=== PATIENT | female | born 1960 | race Caucasian/White ===

== ENCOUNTER 2023-12-13 12:51 | Inpatient (IN) | payer OTHER ==
[~2023-12-13] VITALS: Ht 167.6 cm; Wt 124.7 kg
[2023-12-13 12:56] VITALS: BP 112/72; RESP 20; TEMP 98.3; O2SAT 97
[2023-12-13 14:15] LABS: BASOPHILS % (AUTO) 0.8 % (0.0-2.0); EOSINOPHILS % (AUTO) 0.1 % (0.0-4.0); HEMATOCRIT 43.8 % (36-48); LYMPHOCYTES # (AUTO) 1.3 K/uL (2.5-16.5); LYMPHOCYTES % (AUTO) 20.8 % (20.5-51.1); MEAN CORPUSCULAR HEMOGLOBIN 30 pg (27-31); MEAN CORPUSCULAR HGB CONC 34 g/dL (33-37); MEAN CORPUSCULAR VOLUME 86.8 fL (80-94); MONOCYTES # (AUTO) 0.3 K/uL (0.8-1.0); MONOCYTES % (AUTO) 5.2 % (1.7-9.3); NEUTROPHILS # (AUTO) 4.5 K/uL (1.8-7.7); NEUTROPHILS % (AUTO) 73.1 % (42.2-75.2); PLATELET COUNT (AUTO) 194 K/uL (140-450); RED BLOOD CELL COUNT(AUTO) 5.04 MIL/uL (4.20-5.40); RED CELL DISTRIBUTION WIDTH 14.8 % (11.6-13.7); WHITE BLOOD COUNT (AUTO) 6.1 K/uL (4.8-10.8)
[2023-12-13 14:32] LABS: ANION GAP 17.9 (8-16); CALCIUM 8.5 mg/dL (8.5-10.1); CREATININE 0.9 mg/dL (0.6-1.3); POTASSIUM 4.9 mmol/L (3.5-5.1)
[2023-12-13] MEDS: NACL 0.9% 1,000 ML IV ONE (14:43)
[2023-12-13] MEDS: ONDANSETRON 4 MG/2 ML VIAL IVP ONE (14:44)
[2023-12-13 14:47] LABS: ALBUMIN 3.6 g/dL (3.4-5.0); BILIRUBIN,DIRECT 0.2 mg/dL (0.0-0.3); TOTAL BILIRUBIN 0.8 mg/dL (0.0-1.0); TOTAL PROTEIN, SERUM 7.8 g/dL (6.4-8.2)
[2023-12-13] MEDS ORDERED: FAMOTIDINE 20 MG/2 ML VIAL ONE (14:49)
[2023-12-13] MEDS: FAMOTIDINE 20 MG/2 ML VIAL IVP ONE (14:50)
[2023-12-13] MEDS: ALUMINUM HYD/MAG/SIMETHICONE 30 ML UDC PO ONE (14:55)
[2023-12-13] MEDS ORDERED: DIAZEPAM PFS 10 MG/2 ML SYR ONE (16:39)
[2023-12-13] MEDS: DIAZEPAM PFS 10 MG/2 ML SYR IVP ONE (16:43)
[2023-12-13] MEDS ORDERED: ACETAMINOPHEN 325 MG TAB PO PRN (17:10)
[2023-12-13] MEDS ORDERED: CLON0.1T16 PO (17:57)
[2023-12-13] MEDS ORDERED: LISI40TA12 PO (17:57)
[2023-12-13] MEDS ORDERED: cefTRIAXone 1,000 MG VIAL ONE (18:03)
[2023-12-13] MEDS: NACL 0.9% 1,000 ML IV SCH (19:56)
[2023-12-13 20:05] VITALS: O2SAT 94
[2023-12-13] MEDS: LORazepam 1 MG TAB PO PRN (20:54)
[2023-12-13] MEDS: MORPHINE SULFATE 4 MG/ML SYR IVP PRN (21:34)
[2023-12-13 23:15] VITALS: PULSE 104; RESP 18; RESP 19; O2SAT 94; O2SAT 95
[2023-12-13 23:27] VITALS: PULSE 104
[2023-12-14] VITALS (9 sets, daily range): BP systolic 131–185; BP diastolic 64–97; PULSE 80–109; RESP 18–20; TEMP 97.6–98.9; O2SAT 93–98
[2023-12-14] MEDS ORDERED: INSULIN LISPRO SLIDING SCALE 100 UNITS/ML VIAL SUBQ PRN (01:30)
[2023-12-14] MEDS ORDERED: DEXTROSE 50% 50 ML SYR IVP PRN (01:30)
[2023-12-14] MEDS ORDERED: INSULIN LISPRO SLIDING SCALE 100 UNITS/ML VIAL SUBQ SCH (01:47)
[2023-12-14] MEDS: LABETALOL 20 MG/4 ML VIAL IVP PRN (02:09)
[2023-12-14] MEDS: ONDANSETRON 4 MG/2 ML VIAL IVP PRN (02:11)
[2023-12-14 05:31] LABS: EOSINOPHILS % (AUTO) 0.8 % (0.0-4.0); HEMATOCRIT 38.7 % (36-48); HEMOGLOBIN 13.4 g/dL (12.0-16.0); LYMPHOCYTES # (AUTO) 1.1 K/uL (2.5-16.5); LYMPHOCYTES % (AUTO) 26.8 % (20.5-51.1); MEAN CORPUSCULAR HEMOGLOBIN 30 pg (27-31); MEAN CORPUSCULAR HGB CONC 35 g/dL (33-37); MEAN CORPUSCULAR VOLUME 87.1 fL (80-94); MONOCYTES # (AUTO) 0.3 K/uL (0.8-1.0); MONOCYTES % (AUTO) 6.7 % (1.7-9.3); NEUTROPHILS # (AUTO) 2.6 K/uL (1.8-7.7); NEUTROPHILS % (AUTO) 64.7 % (42.2-75.2); PLATELET COUNT (AUTO) 123 K/uL (140-450); RED BLOOD CELL COUNT(AUTO) 4.45 MIL/uL (4.20-5.40)
[2023-12-14 06:19] LABS: ALBUMIN 3.1 g/dL (3.4-5.0); ANION GAP 13.5 (8-16); CALCIUM 8.1 mg/dL (8.5-10.1); CARBON DIOXIDE 26.1 mmol/L (21-32); CREATININE 0.8 mg/dL (0.6-1.3); MAGNESIUM 2.2 mg/dL (1.8-2.4); POTASSIUM 4.6 mmol/L (3.5-5.1); TOTAL BILIRUBIN 1.3 mg/dL (0.0-1.0); TOTAL PROTEIN, SERUM 6.8 g/dL (6.4-8.2)
[2023-12-14] MEDS: BLOOD GLUCOSE MONITORING 1 DEV DEV FS SCH (06:39)
[2023-12-14] MEDS: chlordiazePOXIDE 25 MG CAP PO SCH (08:20)
[2023-12-14] MEDS: INSULIN LISPRO SLIDING SCALE 100 UNITS/ML VIAL SUBQ PRN (11:29)
[2023-12-14] MEDS: HYDROcodone/APAP 5/325 MG 1 TAB TAB PO PRN (19:35)
[2023-12-14 22:39] LABS: POTASSIUM,URINE RANDOM 102 mmol/L (12-75); URINE SODIUM, RANDOM 30 mmol/l (40-220)
[2023-12-15] VITALS: BP 133/68; PULSE 93; RESP 18; TEMP 97.6; O2SAT 96
[2023-12-15 04:00] VITALS: BP 141/86; PULSE 78; RESP 18; TEMP 97.9; O2SAT 96
[2023-12-15 08:00] VITALS: BP 184/105; PULSE 84; PULSE 87; PULSE 88; RESP 18; RESP 20; TEMP 98.5; O2SAT 96; O2SAT 97
[2023-12-15 08:41] LABS: BASOPHILS % (AUTO) 1.2 % (0.0-2.0); EOSINOPHILS # (AUTO) 0.1 K/uL (0-0.4); EOSINOPHILS % (AUTO) 6.7 % (0.0-4.0); HEMATOCRIT 38.7 % (36-48); HEMOGLOBIN 13.1 g/dL (12.0-16.0); LYMPHOCYTES # (AUTO) 0.9 K/uL (2.5-16.5); LYMPHOCYTES % (AUTO) 40.6 % (20.5-51.1); MEAN CORPUSCULAR HEMOGLOBIN 30 pg (27-31); MEAN CORPUSCULAR HGB CONC 34 g/dL (33-37); MEAN CORPUSCULAR VOLUME 88.8 fL (80-94); MONOCYTES # (AUTO) 0.1 K/uL (0.8-1.0); MONOCYTES % (AUTO) 5.1 % (1.7-9.3); NEUTROPHILS % (AUTO) 46.4 % (42.2-75.2); PLATELET COUNT (AUTO) 106 K/uL (140-450); RED BLOOD CELL COUNT(AUTO) 4.35 MIL/uL (4.20-5.40); RED CELL DISTRIBUTION WIDTH 14.8 % (11.6-13.7); WHITE BLOOD COUNT (AUTO) 2.1 K/uL (4.8-10.8)
[2023-12-15 09:49] LABS: ALBUMIN 2.8 g/dL (3.4-5.0); ANION GAP 10.8 (8-16); CALCIUM 8.4 mg/dL (8.5-10.1); CARBON DIOXIDE 30.4 mmol/L (21-32); CREATININE 0.7 mg/dL (0.6-1.3); MAGNESIUM 1.9 mg/dL (1.8-2.4); POTASSIUM 4.2 mmol/L (3.5-5.1); TOTAL BILIRUBIN 0.6 mg/dL (0.0-1.0); TOTAL PROTEIN, SERUM 6.4 g/dL (6.4-8.2)
[2023-12-15 12:00] VITALS: BP 138/83; PULSE 86; PULSE 93; RESP 20; TEMP 98.4; O2SAT 98
[2023-12-15 20:00] VITALS: BP 169/102; PULSE 80; RESP 16; TEMP 97.2; O2SAT 100
[2023-12-15 21:00] VITALS: PULSE 80; RESP 16; O2SAT 97
[2023-12-16 04:00] VITALS: BP 143/68; PULSE 72; RESP 17; TEMP 97.7; O2SAT 93
[2023-12-16 05:32] LABS: BASOPHILS % (AUTO) 1.5 % (0.0-2.0); EOSINOPHILS # (AUTO) 0.2 K/uL (0-0.4); HEMATOCRIT 37.5 % (36-48); HEMOGLOBIN 12.7 g/dL (12.0-16.0); LYMPHOCYTES # (AUTO) 1.2 K/uL (2.5-16.5); LYMPHOCYTES % (AUTO) 52.8 % (20.5-51.1); MEAN CORPUSCULAR HEMOGLOBIN 30 pg (27-31); MEAN CORPUSCULAR HGB CONC 34 g/dL (33-37); MONOCYTES # (AUTO) 0.1 K/uL (0.8-1.0); MONOCYTES % (AUTO) 5.8 % (1.7-9.3); NEUTROPHILS # (AUTO) 0.7 K/uL (1.8-7.7); NEUTROPHILS % (AUTO) 30.9 % (42.2-75.2); PLATELET COUNT (AUTO) 103 K/uL (140-450); RED BLOOD CELL COUNT(AUTO) 4.21 MIL/uL (4.20-5.40); RED CELL DISTRIBUTION WIDTH 14.8 % (11.6-13.7); WHITE BLOOD COUNT (AUTO) 2.3 K/uL (4.8-10.8)
[2023-12-16 06:50] LABS: ALBUMIN 2.8 g/dL (3.4-5.0); ANION GAP 11.5 (8-16); CALCIUM 8.8 mg/dL (8.5-10.1); CARBON DIOXIDE 28.5 mmol/L (21-32); CREATININE 0.8 mg/dL (0.6-1.3); MAGNESIUM 1.6 mg/dL (1.8-2.4); TOTAL BILIRUBIN 0.5 mg/dL (0.0-1.0); TOTAL PROTEIN, SERUM 6.4 g/dL (6.4-8.2)
[2023-12-16 10:09] VITALS: BP 161/91; PULSE 84
[2023-12-16] MEDS ORDERED: ACET-8905 PO (15:18)
[2023-12-16] MEDS ORDERED: ACET-10509 PO (15:18)
[2023-12-16] MEDS ORDERED: ONDA-188 PO (15:18)
[2023-12-16] MEDS ORDERED: CHLO-836 PO (15:18)
[2023-12-16] MEDS: hydrALAZINE 25 MG TAB PO SCH (15:35)
[2023-12-16 15:52] VITALS: BP 161/91; PULSE 84; RESP 17; TEMP 97.7
== END 2023-12-16 17:48 | disposition home or self-care (01) ==
LOC: MED 12:51 → MMU 17:11 → MTU 21:13
PROVIDERS: ADMIT Student in an Organized Health Care Education/Training Program; ATTEND Student in an Organized Health Care Education/Training Program
DX: K80.70 Calculus of gallbladder and bile duct without cholecystitis without obstruction (principal); E87.1 Hypo-osmolality and hyponatremia; E86.0 Dehydration; E86.1 Hypovolemia; I10 Essential (primary) hypertension; F10.139 Alcohol abuse with withdrawal, unspecified; Y90.9 Presence of alcohol in blood, level not specified
CPT/HCPCS: 36415; 80048; 80053; 80076; 82948; 83690; 83735; 83935; 84100; 84133; 84300; 85025; 87040; 87081; 96361; 96365; 96375; 99285; J0696; J1644; J1815; J2270; J2405; J3360; J3490; J7060